=== PATIENT | female | born 1955 | race Caucasian/White ===

== ENCOUNTER → 2018-01-26 08:16 | Outpatient (CLI) | payer OTHER, SELFPAY ==
--- NOTE | 2018-01-26 | DI.MG.S_ITS ---
BILATERAL DIGITAL SCREENING MAMMOGRAM 3D/2D WITH CAD: 01/26/2018 CLINICAL: Routine screening. Family history of breast cancer. Comparison is made to exams dated: 01/24/2017 mammogram, 11/20/2015 mammogram, and 06/25/2014 mammogram - [facility]. There are scattered fibroglandular elements in both breasts. Current study was also evaluated with a Computer Aided Detection (CAD) system. No significant masses, calcifications, or other findings are seen in either breast. There has been no significant interval change. IMPRESSION: NEGATIVE There is no mammographic evidence of malignancy. A 1 year screening mammogram is recommended. This exam was interpreted at Station ID: [id number]. NOTE: For mammograms, a report in lay terms will be sent to the patient. Approximately 15% of breast malignancies will not be visualized mammographically. In the management of a palpable breast mass, a negative mammogram must not discourage biopsy of a clinically suspicious lesion. Electronically Signed By: Surinder bundy/leoncio:01/26/2018 08:49:43 letter sent: Normal Exam ACR BI-RADS Category 1: Negative 3341F
== END ==
PROVIDERS: Family Provider Family Medicine; PCP Family Medicine; Visit Provider Family Medicine
DX: Z12.31 Encounter for screening mammogram for malignant neoplasm of breast (principal); Z80.3 Family history of malignant neoplasm of breast
CPT/HCPCS: 77063; 77067

== ENCOUNTER → 2018-06-29 15:41 | Outpatient (CLI) | payer OTHER, SELFPAY ==
[2018-06-29 17:05] LABS: Bilirubin Urine UA NEGATIVE (NEGATIVE); Color Urine UA YELLOW; Glucose Urine UA NEGATIVE (Normal); Ketones Urine UA NEGATIVE (NEGATIVE); Leukocyte Esterase Urine UA 1+ (NEGATIVE); Nitrite Urine UA NEGATIVE (Negative); Occult Blood Urine UA NEGATIVE (Negative); Protein Urine UA NEGATIVE (Negative); Specific Gravity Urine UA 1.015 (1.000-1.035); Urobilinogen Urine UA 0.2 E.U./dL (0.2)
[2018-06-29 17:07] LABS: Appearance Urine UA Slightly Cloudy
[2018-06-29 17:28] LABS: Bacteria Urine Few (2-10); Culture Indicated Urine Specimen Cultured; RBC Urine 1-5/HPF (0-5/HPF); Squamous Epithelial Cell Urine 1-5 /HPF; WBC Urine 10-30/HPF (0-5/HPF)
== END ==
PROVIDERS: PCP Family Medicine; Visit Provider Specialist
DX: N39.0 Urinary tract infection, site not specified (principal)
CPT/HCPCS: 81001; 87077; 87086; 87186

== ENCOUNTER → 2018-07-24 11:19 | Outpatient (CLI) | payer OTHER, SELFPAY | DX: Z23 Encounter for immunization (principal) | CPT/HCPCS: 90471; 90686 ==

== ENCOUNTER → 2018-11-10 14:23 | Outpatient (CLI) | payer OTHER, SELFPAY ==
[2018-11-10 14:32] LABS: Bacteria Urine None Seen; RBC Urine None Seen (0-5/HPF)
[2018-11-10 14:41] LABS: Appearance Urine UA CLEAR; Bilirubin Urine UA NEGATIVE (NEGATIVE); Color Urine UA YELLOW; Glucose Urine UA NEGATIVE (Negative); Ketones Urine UA NEGATIVE (NEGATIVE); Leukocyte Esterase Urine UA TRACE (NEGATIVE); Nitrite Urine UA NEGATIVE (Negative); Occult Blood Urine UA NEGATIVE (Negative); Protein Urine UA NEGATIVE (Negative); Urobilinogen Urine UA 0.2 E.U./dL (0.2); pH Urine UA 6.5 (4.5-8.0)
[2018-11-10 14:45] LABS: WBC Urine 5-10/HPF (0-5/HPF)
[2018-11-10 14:46] LABS: Culture Indicated Urine Specimen Cultured
== END ==
PROVIDERS: PCP Family Medicine; Visit Provider Specialist
DX: N39.0 Urinary tract infection, site not specified (principal)
CPT/HCPCS: 81001; 87086

== ENCOUNTER → 2018-11-14 14:37 | Outpatient (REF) | payer OTHER, SELFPAY ==
[2018-11-14 15:19] LABS: Prothrombin Time 11.1 SECONDS (10.1-12.7)
== END ==
LOC: LAB 14:37
PROVIDERS: PCP Family Medicine; Visit Provider Family Medicine
DX: R04.0 Epistaxis (principal)
CPT/HCPCS: 85610

== ENCOUNTER → 2019-05-15 14:19 | Outpatient (CLI) | payer OTHER, SELFPAY ==
--- NOTE | 2019-05-15 | DI.MG.S_ITS ---
BILATERAL DIGITAL SCREENING MAMMOGRAM 3D/2D WITH CAD: 05/15/2019 CLINICAL: Routine screening. Family history of breast cancer. Comparison is made to exams dated: 01/26/2018 mammogram, 01/24/2017 mammogram, and 11/20/2015 mammogram - [facility]. There are scattered fibroglandular elements in both breasts. Current study was also evaluated with a Computer Aided Detection (CAD) system. No significant masses, calcifications, or other findings are seen in either breast. There has been no significant interval change. IMPRESSION: NEGATIVE There is no mammographic evidence of malignancy. A 1 year screening mammogram is recommended. This exam was interpreted at Station ID: [id number]. NOTE: For mammograms, a report in lay terms will be sent to the patient. Approximately 15% of breast malignancies will not be visualized mammographically. In the management of a palpable breast mass, a negative mammogram must not discourage biopsy of a clinically suspicious lesion. Electronically Signed By: Frankie naranjo/leoncio:05/15/2019 17:28:05 letter sent: Normal Exam ACR BI-RADS Category 1: Negative 3341F
== END ==
PROVIDERS: PCP Family Medicine; Visit Provider Family Medicine
DX: Z12.31 Encounter for screening mammogram for malignant neoplasm of breast (principal); Z80.3 Family history of malignant neoplasm of breast
CPT/HCPCS: 77063; 77067

== ENCOUNTER → 2019-07-02 10:46 | Outpatient (CLI) | payer OTHER, SELFPAY ==
[2019-07-02 11:06] LABS: Appearance Urine UA CLEAR; Bilirubin Urine UA NEGATIVE (NEGATIVE); Color Urine UA YELLOW; Glucose Urine UA NEGATIVE (Negative); Ketones Urine UA NEGATIVE (NEGATIVE); Leukocyte Esterase Urine UA 3+ (NEGATIVE); Nitrite Urine UA NEGATIVE (Negative); Occult Blood Urine UA TRACE-INTACT (Negative); Protein Urine UA NEGATIVE (Negative); Specific Gravity Urine UA <=1.005 (1.000-1.035); Urobilinogen Urine UA 0.2 E.U./dL (0.2)
[2019-07-02 11:59] LABS: Bacteria Urine Few (2-10); Culture Indicated Urine Specimen Cultured; RBC Urine 0-1/HPF (0-5/HPF); WBC Urine 30-100/HPF (0-5/HPF)
== END ==
PROVIDERS: PCP Family Medicine; Visit Provider Specialist
DX: N39.0 Urinary tract infection, site not specified (principal)
CPT/HCPCS: 81001; 87077; 87086; 87186

== ENCOUNTER → 2019-08-03 13:50 | Outpatient (CLI) | payer OTHER, SELFPAY ==
--- NOTE | 2019-08-03 | DI.RAD.S_ITS ---
PROCEDURE: XR SHOULDER RT MIN 2V INDICATIONS: RIGHT ROTATOR CUFF TENDONITIS TECHNIQUE: 3 views of the shoulder were acquired. COMPARISON: [facility], SHOULDER MINIMUM 2 VIEW LEFT, 02/22/2014, 13:36. [facility], CHEST 2 VIEW, 12/02/2017, 15:00. FINDINGS: Bones: No fractures or dislocations. No suspicious bony lesions. Visualized ribs appear intact. Mild joint narrowing with periarticular osteophyte formation of the acromioclavicular and glenohumeral joints. Soft tissues: No suspicious soft tissue calcifications. IMPRESSION: Mild acromioclavicular and glenohumeral joint degeneration. Dictated by: Jimy ONEIL Interpreted: Shiva Shearer MD on 08/03/2019 at 14:10 Approved by: Shiva Shearer M.D. on 08/03/2019 at 16:52
== END ==
PROVIDERS: PCP Family Medicine; Visit Provider Family Medicine
DX: M75.81 Other shoulder lesions, right shoulder (principal); M19.011 Primary osteoarthritis, right shoulder
CPT/HCPCS: 73030

== ENCOUNTER → 2019-08-08 15:50 | Outpatient (CLI) | payer OTHER, SELFPAY | PROVIDERS: PCP Family Medicine | DX: Z23 Encounter for immunization (principal) | CPT/HCPCS: 90471; 90686 ==

== ENCOUNTER → 2019-09-28 10:42 | Outpatient (CLI) | payer OTHER, SELFPAY ==
--- NOTE | 2019-09-28 10:44 | DI.RAD.S_ITS ---
PROCEDURE: XR CERVICAL SPINE 4V OR 5V INDICATIONS: neck pain and right shoulder TECHNIQUE: 5 views of the cervical spine acquired. COMPARISON: None. FINDINGS: Bones: No fractures or dislocations to the T1 level. Multilevel degenerative endplate sclerosis and spurring. Diffuse facet arthropathy. Moderate narrowing of the C5-C6 disc space and the C6-C7 disc space. Moderate narrowing of the C3-C4 disc space. Mild narrowing of the remaining cervical disc spaces Minimal grade 1 retrolisthesis of C3 on C4. Trace retrolisthesis of C5 on C6. Grade 1 anterolisthesis of C7 on T1. On the left, mild bony foraminal stenosis at C3-C4, and C6-C7 On the right, mild bony foraminal stenosis at C3-C4. Soft tissues: No prevertebral soft tissue swelling. IMPRESSION: Diffuse cervical spondylosis and facet arthropathy Multilevel spondylolisthesis as above. Bilateral bony foraminal stenoses as above. Dictated by: Walker Brody M.D. on 09/28/2019 at 13:24 Approved by: Walker Brody M.D. on 09/28/2019 at 13:28
== END ==
PROVIDERS: PCP Family Medicine; Visit Provider Physical Medicine & Rehabilitation
DX: M54.2 Cervicalgia (principal); M25.511 Pain in right shoulder; M47.812 Spondylosis without myelopathy or radiculopathy, cervical region; M48.02 Spinal stenosis, cervical region; M43.12 Spondylolisthesis, cervical region
CPT/HCPCS: 72050

== ENCOUNTER → 2019-11-05 13:39 | Outpatient (CLI) | payer OTHER, SELFPAY ==
[2019-11-05 15:53] LABS: Appearance Urine UA CLOUDY; Bilirubin Urine UA NEGATIVE (NEGATIVE); Color Urine UA YELLOW; Glucose Urine UA NEGATIVE (Negative); Ketones Urine UA TRACE (NEGATIVE); Leukocyte Esterase Urine UA 2+ (NEGATIVE); Nitrite Urine UA POSITIVE (Negative); Occult Blood Urine UA 2+ (Negative); Protein Urine UA TRACE (Negative); Urobilinogen Urine UA 0.2 E.U./dL (0.2)
[2019-11-05 16:04] LABS: Bacteria Urine Many (>30); Culture Indicated Urine Specimen Cultured; RBC Urine 5-10/HPF (0-5/HPF); Squamous Epithelial Cell Urine 0-1 /HPF (0-5/HPF); Transitional Epi Cells Urine 0-1/HPF (0-5/HPF); WBC Urine >100/HPF (0-5/HPF)
== END ==
PROVIDERS: PCP Family Medicine; Referring Provider Specialist; Visit Provider Specialist
DX: N39.0 Urinary tract infection, site not specified (principal)
CPT/HCPCS: 81001; 87077; 87086; 87186

== ENCOUNTER → 2019-11-22 11:10 | Outpatient (CLI) | payer OTHER, SELFPAY ==
--- NOTE | 2019-11-22 | DI.RAD.S_ITS ---
PROCEDURE: XR CHEST 2V INDICATIONS: cough TECHNIQUE: 2 views of the chest were acquired. COMPARISON: [facility], , CHEST 2 VIEW, 12/02/2017, 15:00. FINDINGS: Surgical changes and devices: None. Lungs and pleura: Lungs are clear. No pleural effusions or pneumothorax. Mediastinum: Mediastinal contours are normal. Heart size is normal. Bones and chest wall: No suspicious bony abnormalities. Soft tissues appear unremarkable. IMPRESSION: Normal for age, source of current cough symptoms is not seen. Dictated by: Luc Franklin M.D. on 11/22/2019 at 11:47 Approved by: Luc Franklin M.D. on 11/22/2019 at 11:47
== END ==
PROVIDERS: PCP Family Medicine; Referring Provider Family Medicine; Visit Provider Family Medicine
DX: R05 Cough (principal)
CPT/HCPCS: 71046

== ENCOUNTER → 2020-07-08 14:24 | Outpatient (CLI) | payer OTHER, SELFPAY ==
--- NOTE | 2020-07-08 | DI.MG.S_ITS ---
BILATERAL DIGITAL SCREENING MAMMOGRAM 3D/2D WITH CAD: 07/08/2020 CLINICAL: Routine screening. Family history of breast cancer. Comparison is made to exams dated: 05/15/2019 mammogram, 01/26/2018 mammogram, and 01/24/2017 mammogram - [facility]. There are scattered fibroglandular elements in both breasts. Current study was also evaluated with a Computer Aided Detection (CAD) system. No significant masses, calcifications, or other findings are seen in either breast. There has been no significant interval change. IMPRESSION: NEGATIVE There is no mammographic evidence of malignancy. A 1 year screening mammogram is recommended. This exam was interpreted at Station ID: [id number]. NOTE: For mammograms, a report in lay terms will be sent to the patient. Approximately 15% of breast malignancies will not be visualized mammographically. In the management of a palpable breast mass, a negative mammogram must not discourage biopsy of a clinically suspicious lesion. Electronically Signed By: Kami ayala/leoncio:07/08/2020 15:38:43 letter sent: Normal Exam ACR BI-RADS Category 1: Negative 3341F
== END ==
PROVIDERS: PCP Family Medicine; Referring Provider Family Medicine; Visit Provider Family Medicine
DX: Z12.31 Encounter for screening mammogram for malignant neoplasm of breast (principal); Z80.3 Family history of malignant neoplasm of breast
CPT/HCPCS: 77063; 77067

== ENCOUNTER → 2020-08-05 15:27 | Outpatient (CLI) | payer OTHER, SELFPAY | PROVIDERS: PCP Family Medicine; Referring Provider Internal Medicine; Visit Provider Internal Medicine | DX: Z23 Encounter for immunization (principal) | CPT/HCPCS: 90471; 90686 ==

== ENCOUNTER → 2020-09-04 11:58 | Outpatient (CLI) | payer OTHER, SELFPAY ==
[2020-09-04] MEDS: COVID-19 VACC(MODERNA-1)/PF 100 MCG/0.5 ML VIAL IM (12:09)
== END ==
PROVIDERS: PCP Family Medicine; Visit Provider Internal Medicine
DX: Z23 Encounter for immunization (principal)
CPT/HCPCS: 0011A; 91301

== ENCOUNTER → 2020-10-03 15:09 | Outpatient (CLI) | payer OTHER, SELFPAY ==
[2020-10-03] MEDS: COVID-19 VACC #2, MRNA(MOD) 100 MCG/0.5 ML VIAL IM (15:34)
== END ==
PROVIDERS: PCP Family Medicine; Visit Provider Internal Medicine
DX: Z23 Encounter for immunization (principal)
CPT/HCPCS: 0012A; 91301

== ENCOUNTER → 2021-01-21 14:16 | Outpatient (CLI) | payer OTHER, SELFPAY | PROVIDERS: PCP Family Medicine; Referring Provider Family Medicine; Visit Provider Family Medicine | DX: M85.851 Other specified disorders of bone density and structure, right thigh (principal); Z78.0 Asymptomatic menopausal state; Z87.891 Personal history of nicotine dependence | CPT/HCPCS: 77080 ==

== ENCOUNTER → 2021-02-20 14:19 | Outpatient (CLI) | payer OTHER, SELFPAY ==
--- NOTE | 2021-02-20 15:23 | PM.TREADMILL ---
Cardiac Stress Test Report Referral & Results Date Patient Seen: 02/20/21 Time Patient Seen: 15:23 Requesting provider: Jossie Florez Indication: Chest pain Rest ECG: Sinus rhythm Procedure Note: Standard Joshua protocol, 7:50 mins, 10.1 METS Good exercise capacity, PRESTON -23% Good exercise hemodynamic response to exercise No chest pain or anginal symptoms 1-1.[address] depression in II, III,aVF, V4-V6 No ectopy Impression: Equivocal stress test Please note: Actual ECG tracings can be found in the PACS system.
--- NOTE | 2021-02-20 18:37 | DI.NM.S_ITS ---
DATE OF SERVICE: 02/20/2021 PROCEDURE PERFORMED: Stress only exercise treadmill myocardial perfusion imaging study with gating to assess ejection fraction and regional wall motion. ORDERING PROVIDER: Dr. Jossie Florez. INDICATIONS: The patient is a 65-year-old female with atypical chest discomfort. CARDIAC STRESS: The patient was able to exercise for 7 minutes 50 seconds on a standard Josuha protocol, suggesting very good exercise capacity with an PRESTON of - 23%. She had a normal heart rate and blood pressure response, achieving a maximum heart rate of 154 BPM (99% of her predicted maximum). She had no chest discomfort or other anginal symptoms. Her resting ECG is normal with normal ST segments and occasional PACs. With exercise, there is considerable motion artifact that makes ST-segment interpretation challenging, but her immediate recovery ECG shows no concerning ST-segment deviation. She had rare PACs with exercise and in recovery, but no complex arrhythmias. At 6 minutes 40 seconds of exercise at a heart rate of 142 BPM, 25.7 millicuries of technetium-99m Myoview was injected and the patient was imaged 15 minutes later using a gated SPECT acquisition protocol. Given the normal stress images, it was felt that resting images were not needed. FINDINGS: 1. Raw data: There is fairly good myocardial tracer uptake with mild breast shadows noted. Lung/heart ratio was normal at 0.29. 2. Quantitated gated SPECT: Post-stress ejection fraction is estimated at 75% without any focal wall motion abnormality and specifically the anterior wall has normal contractility. Post-stress end-diastolic volume is normal at 81 mL. 3. The post-stress supine images show a fairly normal myocardial perfusion pattern with a very subtle defect in the distal anterior wall in a pattern that would be consistent with breast attenuation artifact, supported by its complete resolution on the prone images, revealing a normal, homogeneous perfusion pattern. On the basis of this, it was felt that resting images were not needed. IMPRESSION: 1. Normal myocardial perfusion study. 2. Probable mild breast attenuation artifact, but no evidence for myocardial ischemia or previous myocardial infarction. 3. Normal left ventricular systolic function without any focal wall motion abnormality. 4. Very good exercise capacity without angina or ECG evidence of ischemia. Sue Cleveland - BROWN/jacinto/derrick doc#: [id number]/job#: [id number] dd: 02/20/2021 16:45:00 dt: 02/20/2021 18:21:00 DICTATING MD/COPIES TO: Kenny Ochoa MD; Jossie Florez MD COPIES MNE: VIRIDIANA;
== END ==
PROVIDERS: PCP Family Medicine; Referring Provider Family Medicine; Visit Provider Family Medicine
DX: R07.89 Other chest pain (principal)
CPT/HCPCS: 78451; 93017; A9502

== ENCOUNTER → 2021-06-23 13:39 | Outpatient (CLI) | payer MEDICARE, OTHER, SELFPAY | PROVIDERS: PCP Family Medicine; Referring Provider Internal Medicine; Visit Provider Internal Medicine | DX: Z23 Encounter for immunization (principal) | CPT/HCPCS: 90471; 90686 ==

== ENCOUNTER → 2021-07-23 12:08 | Outpatient (CLI) | payer MEDICARE, OTHER, SELFPAY ==
[2021-07-23 13:06] LABS: Appearance Urine UA SL CLOUDY; Bilirubin Urine UA NEGATIVE (NEGATIVE); Color Urine UA YELLOW; Glucose Urine UA NEGATIVE (Negative); Ketones Urine UA NEGATIVE (NEGATIVE); Leukocyte Esterase Urine UA 3+ (NEGATIVE); Nitrite Urine UA POSITIVE (Negative); Occult Blood Urine UA 1+ (Negative); Protein Urine UA NEGATIVE (Negative); Specific Gravity Urine UA <=1.005 (1.000-1.035); Urobilinogen Urine UA 0.2 E.U./dL (0.2)
[2021-07-23 13:35] LABS: Bacteria Urine Many (>30); Culture Indicated Urine Specimen Cultured; RBC Urine 1-5/HPF (0-5/HPF); Squamous Epithelial Cell Urine 0-1 /HPF (0-5/HPF); WBC Urine >100/HPF (0-5/HPF)
== END ==
PROVIDERS: PCP Family Medicine; Referring Provider Obstetrics & Gynecology; Visit Provider Obstetrics & Gynecology
DX: R30.0 Dysuria (principal)
CPT/HCPCS: 81001; 87077; 87086; 87186

== ENCOUNTER → 2021-08-05 08:01 | Outpatient (CLI) | payer MEDICARE, OTHER, SELFPAY ==
[2021-08-05 10:22] LABS: Appearance Urine UA CLEAR; Bilirubin Urine UA NEGATIVE (NEGATIVE); Color Urine UA YELLOW; Glucose Urine UA NEGATIVE (Negative); Ketones Urine UA NEGATIVE (NEGATIVE); Leukocyte Esterase Urine UA 3+ (NEGATIVE); Nitrite Urine UA NEGATIVE (Negative); Occult Blood Urine UA 1+ (Negative); Protein Urine UA NEGATIVE (Negative); Specific Gravity Urine UA <=1.005 (1.000-1.035); Urobilinogen Urine UA 0.2 E.U./dL (0.2)
[2021-08-05 10:30] LABS: Bacteria Urine Many (>30); Culture Indicated Urine Specimen Cultured; RBC Urine 1-5/HPF (0-5/HPF); WBC Urine 5-10/HPF (0-5/HPF)
== END ==
PROVIDERS: PCP Family Medicine; Referring Provider Obstetrics & Gynecology; Visit Provider Obstetrics & Gynecology
DX: R30.0 Dysuria (principal)
CPT/HCPCS: 81001; 87077; 87086; 87186

== ENCOUNTER → 2021-08-19 09:54 | Outpatient (CLI) | payer MEDICARE, OTHER, SELFPAY ==
[2021-08-19 11:21] LABS: Appearance Urine UA SL CLOUDY; Bilirubin Urine UA NEGATIVE (NEGATIVE); Color Urine UA YELLOW; Glucose Urine UA NEGATIVE (Negative); Ketones Urine UA NEGATIVE (NEGATIVE); Leukocyte Esterase Urine UA 3+ (NEGATIVE); Nitrite Urine UA NEGATIVE (Negative); Occult Blood Urine UA 1+ (Negative); Protein Urine UA NEGATIVE (Negative); Urobilinogen Urine UA 0.2 E.U./dL (0.2)
[2021-08-19 11:23] LABS: pH Urine UA 6.5 (4.5-8.0)
[2021-08-19 12:09] LABS: RBC Urine 1-5/HPF (0-5/HPF)
[2021-08-19 12:10] LABS: Bacteria Urine Many (>30); Culture Indicated Urine Specimen Cultured; Squamous Epithelial Cell Urine None Seen (0-5/HPF); Transitional Epi Cells Urine 1-5/HPF (0-5/HPF); WBC Urine 30-100/HPF (0-5/HPF)
== END ==
PROVIDERS: PCP Family Medicine; Referring Provider Specialist; Visit Provider Specialist
DX: R30.0 Dysuria (principal)
CPT/HCPCS: 81001; 87077; 87086; 87186

== ENCOUNTER → 2021-10-08 08:43 | Outpatient (CLI) | payer MEDICARE, OTHER, SELFPAY ==
--- NOTE | 2021-10-08 | DI.MG.S_ITS ---
BILATERAL DIGITAL SCREENING MAMMOGRAM 3D/2D WITH CAD: 10/08/2021 CLINICAL: Routine screening. Family history of breast cancer. Comparison is made to exams dated: 07/08/2020 mammogram, 05/15/2019 mammogram, and 01/26/2018 mammogram - [facility]. There are scattered fibroglandular elements in both breasts. Current study was also evaluated with a Computer Aided Detection (CAD) system. No significant masses, calcifications, or other findings are seen in either breast. There has been no significant interval change. IMPRESSION: NEGATIVE There is no mammographic evidence of malignancy. A 1 year screening mammogram is recommended. This exam was interpreted at Station ID: [id number]. NOTE: For mammograms, a report in lay terms will be sent to the patient. Approximately 15% of breast malignancies will not be visualized mammographically. In the management of a palpable breast mass, a negative mammogram must not discourage biopsy of a clinically suspicious lesion. Electronically Signed By: Frankie naranjo/leoncio:10/08/2021 11:03:00 letter sent: Normal Exam ACR BI-RADS Category 1: Negative 3341F
== END ==
PROVIDERS: PCP Family Medicine; Referring Provider Family Medicine; Visit Provider Family Medicine
DX: Z12.31 Encounter for screening mammogram for malignant neoplasm of breast (principal); Z80.3 Family history of malignant neoplasm of breast
CPT/HCPCS: 77063; 77067

== ENCOUNTER → 2021-11-28 08:36 | Outpatient (CLI) | payer MEDICARE, OTHER, SELFPAY | PROVIDERS: PCP Family Medicine; Visit Provider Physician Assistant | DX: N39.0 Urinary tract infection, site not specified (principal) | CPT/HCPCS: 87077; 87086; 87147; 87186 ==

== ENCOUNTER → 2021-12-07 12:06 | Outpatient (CLI) | payer MEDICARE, OTHER, SELFPAY ==
--- NOTE | 2021-12-07 12:09 | DI.US.S_ITS ---
PROCEDURE: US RENAL COMPLETE INDICATIONS: CHRONIC UTI TECHNIQUE: Real-time scanning was performed of the kidneys and bladder, with image documentation. COMPARISON: None. FINDINGS: Kidneys: Kidneys are normal in size. Right kidney measures 10.7 cm long; left kidney measures 9.9 cm long. Right renal cortical thickness is 1.9 cm; left renal cortical thickness is 1.5 cm. Renal cortical echotexture is normal. No hydronephrosis or nephrolithiasis. No suspicious solid mass lesions. Bladder: Pre-void bladder volume is 265 mL. Post-void residual is 196 mL. Pre-void images demonstrate no intraluminal masses or stones. On pre-void images, both right and left ureteral jets are noted with color Doppler interrogation. (Of note, ureteral jets may not be detectable in up to 25% of cases due to insufficient differences in specific gravity between ureteral and bladder urine). Miscellaneous: No free pelvic fluid. IMPRESSION: 1. No hydronephrosis. 2. Large postvoid residual urinary bladder volume. Dictated by: Carla Garnett MD, PhD on 12/07/2021 at 13:00 Approved by: Carla Garnett MD, PhD on 12/07/2021 at 13:02
== END ==
PROVIDERS: PCP Family Medicine; Referring Provider Specialist; Visit Provider Specialist
DX: R30.0 Dysuria (principal); R10.9 Unspecified abdominal pain; R33.9 Retention of urine, unspecified; N39.0 Urinary tract infection, site not specified; Z87.440 Personal history of urinary (tract) infections
CPT/HCPCS: 76770

== ENCOUNTER → 2021-12-10 16:30 | Outpatient (CLI) | payer MEDICARE, OTHER, SELFPAY ==
--- NOTE | 2021-12-10 16:32 | DI.RAD.S_ITS ---
PROCEDURE: XR HIP W PEL IF DONE ELENI MIN 4V INDICATIONS: right hip djd TECHNIQUE: AP pelvis with lateral view(s) of the bilateral hip(s). COMPARISON: None. FINDINGS: Bones: No fractures or dislocations. Pelvic ring appears intact. No suspicious bony lesions. Moderate, predominantly medial joint space narrowing of the bilateral hips with mild periarticular osteophytosis. Increased sclerosis of the femoral heads, which may be secondary to superimposed acetabulum. Soft tissues: Large stool burden in the visualized colon. No suspicious soft tissue calcifications. IMPRESSION: Bilateral hip degeneration as detailed above. Dictated by: Clay Barrios M.D. on 12/10/2021 at 16:59 Approved by: Clay Barrios M.D. on 12/10/2021 at 17:00
== END ==
PROVIDERS: PCP Family Medicine; Referring Provider Physical Medicine & Rehabilitation; Visit Provider Physical Medicine & Rehabilitation
DX: M16.0 Bilateral primary osteoarthritis of hip (principal)
CPT/HCPCS: 73522

== ENCOUNTER → 2021-12-13 09:32 | Outpatient (CLI) | payer MEDICARE, OTHER, SELFPAY | PROVIDERS: PCP Family Medicine; Referring Provider Physician Assistant; Visit Provider Physician Assistant | DX: R30.0 Dysuria (principal) | CPT/HCPCS: 87086 ==

== ENCOUNTER → 2022-02-16 14:24 | Outpatient (CLI) | payer MEDICARE, OTHER, SELFPAY ==
--- NOTE | 2022-02-16 14:26 | DI.MRI.S_ITS ---
PROCEDURE: MR HIP RT WO CON INDICATIONS: Right hip DJD acetabular tear TECHNIQUE: Noncontrast coronal T1 spin echo and STIR through the bony pelvis. Coronal and axial T2 fast spin echo with fat saturation, sagittal T1 spin echo, and oblique axial T2 fast spin echo with fat saturation through the hip. COMPARISON: [facility], CR, XR HIP W PEL IF DONE ELENI 3TO4V, 12/10/2021, 16:25. FINDINGS: Image quality: Excellent. Bones and joints: Bone marrow of the pelvic ring and proximal femurs show normal signal throughout. No intraosseous lesions or fractures. No avascular necrosis of the femoral heads. Mild degenerative changes are seen in the pubic symphysis. Disc desiccation, degenerative endplate changes, and facet hypertrophy are seen in the lower lumbar spine. Tendons and ligaments: Mild distal gluteus medius tendinosis and gluteus minimus tendinosis near their distal insertions. No discrete gluteal tendon tear seen. The proximal iliotibial band appears intact. The iliopsoas tendon appears intact, without adjacent bursal fluid collections. The origin of the hamstring tendon is intact at the ischial tuberosity. The direct and indirect heads of the rectus femoris muscle origin appear intact. Labrum and cartilage: There is multifocal cartilage irregularity as well as focal full-thickness cartilage loss at the superior medial aspect of the hip with subchondral edema in the femoral head. Posterior acetabular subchondral cystic changes are also noted and there is marginal osteophyte formation. There is diffuse labral degeneration and nondisplaced degenerative tearing. No significant paralabral cyst is seen. There is normal morphology of the femoral head and the acetabulum. Soft tissues: Mild focal edema is seen within the proximal rectus femoris muscle that may indicate a low-grade strain. Visualized muscles otherwise demonstrate normal bulk and internal signal. Quadratus femoris muscle demonstrates no internal edema to suggest ischiofemoral impingement. The proximal sciatic neurovascular bundle appears intact. Status post hysterectomy. IMPRESSION: 1. Right hip osteoarthrosis including full-thickness cartilage loss at the superomedial femoral head with subchondral edema and subchondral cystic changes. 2. Diffuse labral degeneration and degenerative tearing. 3. Low-grade strain of the rectus femoris muscle. 4. Mild tendinosis of the distal right gluteus medius and minimus tendons. 5. Degenerative changes in the pubic symphysis and included lower lumbar spine. Dictated by: René Alfaro M.D. on 02/17/2022 at 8:20 Approved by: René Alfaro M.D. on 02/17/2022 at 8:32
== END ==
PROVIDERS: PCP Family Medicine; Referring Provider Physical Medicine & Rehabilitation; Visit Provider Physical Medicine & Rehabilitation
DX: S73.191A Other sprain of right hip, initial encounter (principal); S76.811A Strain of other specified muscles, fascia and tendons at thigh level, right thigh, initial encounter; M16.11 Unilateral primary osteoarthritis, right hip; M47.816 Spondylosis without myelopathy or radiculopathy, lumbar region; X58.XXXA Exposure to other specified factors, initial encounter
CPT/HCPCS: 73721

== ENCOUNTER → 2022-04-27 13:23 | Outpatient (CLI) | payer MEDICARE, OTHER, SELFPAY ==
[2022-04-27 14:03] LABS: Appearance Urine UA CLEAR; Bilirubin Urine UA NEGATIVE (NEGATIVE); Color Urine UA YELLOW; Glucose Urine UA TRACE g/dL (Negative); Ketones Urine UA NEGATIVE (NEGATIVE); Leukocyte Esterase Urine UA 3+ (NEGATIVE); Nitrite Urine UA POSITIVE (Negative); Occult Blood Urine UA 2+ (Negative); Protein Urine UA 1+ (Negative); Specific Gravity Urine UA 1.025 (1.000-1.035); Urobilinogen Urine UA 0.2 E.U./dL (0.2); pH Urine UA 5.5 (4.5-8.0)
[2022-04-27 14:05] LABS: Bacteria Urine Many (>30); Culture Indicated Urine Specimen Cultured; RBC Urine 5-10/HPF (0-5/HPF); Squamous Epithelial Cell Urine 0-1 /HPF (0-5/HPF); WBC Urine 30-100/HPF (0-5/HPF)
== END ==
PROVIDERS: PCP Family Medicine; Referring Provider Specialist; Visit Provider Specialist
DX: N39.0 Urinary tract infection, site not specified (principal); R30.0 Dysuria; Z87.440 Personal history of urinary (tract) infections
CPT/HCPCS: 81001; 87077; 87086; 87186

== ENCOUNTER → 2022-07-16 13:54 | Outpatient (CLI) | payer MEDICARE, OTHER, SELFPAY | PROVIDERS: PCP Family Medicine; Referring Provider Internal Medicine; Visit Provider Internal Medicine | DX: Z23 Encounter for immunization (principal) | CPT/HCPCS: 90471; 90686 ==

== ENCOUNTER → 2022-11-29 16:13 | Outpatient (CLI) | payer MEDICARE, OTHER, SELFPAY ==
--- NOTE | 2022-11-29 | DI.MG.S_ITS ---
BILATERAL DIGITAL SCREENING MAMMOGRAM 3D/2D WITH CAD: 11/29/2022 CLINICAL: Routine screening. Family history of breast cancer. Comparison is made to exams dated: 10/08/2021 mammogram, 07/08/2020 mammogram, 05/15/2019 mammogram, and 01/26/2018 mammogram - [facility]. There are scattered areas of fibroglandular density in both breasts (category b / 25%-50% glandular tissue). Current study was also evaluated with a Computer Aided Detection (CAD) system. No significant masses, calcifications, or other findings are seen in either breast. There has been no significant interval change. IMPRESSION: NEGATIVE There is no mammographic evidence of malignancy. A 1 year screening mammogram is recommended. Based on the Tyrer Cuzick model (a risk assessment model) the patient's lifetime risk is 5.6% and her 10 year risk is 2.9%. According to the ACR, ACS, and NCCN guidelines, an annual breast MRI exam along with mammogram is recommended if the patient's lifetime risk is 20% or greater. This exam was interpreted at Station ID: [id number]. NOTE: For mammograms, a report in lay terms will be sent to the patient. Approximately 15% of breast malignancies will not be visualized mammographically. In the management of a palpable breast mass, a negative mammogram must not discourage biopsy of a clinically suspicious lesion. Electronically Signed By: Fransisco thomson/leoncio:11/30/2022 09:21:20 letter sent: Normal Exam ACR BI-RADS Category 1: Negative 3341F
== END ==
PROVIDERS: PCP Family Medicine; Referring Provider Family Medicine; Visit Provider Family Medicine
DX: Z12.31 Encounter for screening mammogram for malignant neoplasm of breast (principal)
CPT/HCPCS: 77063; 77067

== ENCOUNTER → 2023-01-27 12:22 | Outpatient (CLI) | payer MEDICARE, OTHER, SELFPAY ==
--- NOTE | 2023-01-27 | DI.RAD.S_ITS ---
Bone Density Report Name: ROBERTO ALY Age: 67 Sex: Female Ethnicity: White Date of : 1955 Indication: postmenopausal; screening for osteoporosis; Referring Provider: KERRY TESFAYE Study: Bone densitometry was performed. Exam Date: January 27, 2023 Accession number: [id number] Bone Density: Region BMD T-score Z-score Classification AP Spine(L1-L4) 0.908 -1.3 0.7 Osteopenia Femoral Neck (Left) 0.704 -1.3 0.4 Osteopenia Total Hip (Left) 0.808 -1.1 0.3 Osteopenia Femoral Neck (Right) 0.683 -1.5 0.2 Osteopenia Total Hip (Right) 0.785 -1.3 0.1 Osteopenia Total Hip Mean 0.797 -1.2 0.2 Osteopenia World Health Organization criteria for BMD impression classify patients as: Normal (T-score at or above -1.0), Osteopenia (T-score between -1.0 and -2.5), or Osteoporosis (T-score at or below -2.5). 10-year Fracture Risk(1): Major Osteoporotic Fracture 9.6% Hip Fracture 1.2% Reported Risk Factors: [place] (), Neck BMD=0.683, BMI=24.3 (1) FRAX(R) Version 3.08. Fracture probability calculated for an untreated patient. Fracture probability may be lower if the patient has received treatment. Impression: The patient has low bone mass, based on the Right Femoral Neck T-score. The patient has an estimated ten-year risk of hip fracture of 1.2% and an estimated ten-year risk of major fracture of 9.6%, based on the WHO FRAX algorithm. Discussion: BONE DENSITY IS LOW AT ONE OR MORE SKELETAL SITES. This patient's lowest T-score is low at one or more skeletal sites. It meets the World Health Organization's (WHO) criteria for low bone mass (T-score between -1.0 and -2.5). The patient's 10-year risk of fracture as calculated by FRAX is less than the threshold where pharmacological therapy is recommended by the National Osteoporosis Foundation (NOF). However, all treatment decisions require clinical judgment and consideration of individual patient factors, including patient preferences, comorbidities, previous drug use, risk factors not captured in the FRAX model (e.g., frailty, falls, vitamin D deficiency, increased bone turnover, interval significant decline in bone density) and possible under or overestimation of fracture risk by FRAX. The patient should follow a healthful lifestyle (good nutrition with adequate calcium and vitamin D, and appropriate weight-bearing exercise). Follow-Up: Consider repeating this study in 2 to 3 years to reassess this patient's status, or sooner if there is some new clinical indication. Reported by: MARISSA SCHAFFER M.D. on 01/27/2023 12:41:00 PM.
== END ==
PROVIDERS: PCP Family Medicine; Referring Provider Family Medicine; Visit Provider Family Medicine
DX: Z78.0 Asymptomatic menopausal state (principal); M85.80 Other specified disorders of bone density and structure, unspecified site
CPT/HCPCS: 77080

== ENCOUNTER → 2023-08-02 11:38 | Outpatient (CLI) | payer MEDICARE, OTHER, SELFPAY | PROVIDERS: PCP Family Medicine; Referring Provider Family Medicine; Visit Provider Family Medicine | DX: Z23 Encounter for immunization (principal) | CPT/HCPCS: 90471; 90686 ==

== ENCOUNTER → 2023-08-23 16:54 | Outpatient (ROUT) | payer MEDICARE, OTHER, SELFPAY ==
[2023-08-23 17:42] LABS: Influenza A - CEPHEID Flu A NEGATIVE (NEGATIVE); Influenza B - CEPHEID Flu B NEGATIVE (NEGATIVE); Respiratory Syncytial Virus Negative (Negative)
[2023-08-23 18:28] LABS: COVID-19 CEPHEID 4-PLEX PCR Negative (Negative)
== END ==
PROVIDERS: PCP Family Medicine; Visit Provider Family Medicine
DX: R05.1 Acute cough (principal)
CPT/HCPCS: 0241U

== ENCOUNTER → 2023-11-17 15:33 | Outpatient (CLI) | payer MEDICARE, OTHER, SELFPAY ==
--- NOTE | 2023-11-17 15:35 | DI.CT.S_ITS ---
PROCEDURE: CT HIP RIGHT WITHOUT CON INDICATIONS: Unilateral primary osteoarthritis, right hip TECHNIQUE: Noncontrast 3 mm axial sections acquired through the bony pelvis. Additional 3 mm axial sections acquired through the symptomatic hip joint, with coronal and sagittal reformats. COMPARISON: None. FINDINGS: Image quality: Excellent. Bones: Asymmetric moderate to severe right hip joint osteoarthritic changes are seen with near complete loss of joint space, extensive subchondral sclerosis and prominent marginal osteophyte formation. Subcortical cystic changes also noted in weight-bearing portion of right femoral head. Kpzp-ex-mzfvvqsm left hip joint osteoarthritic changes also seen. No avascular necrosis of femoral head. No acute fracture or dislocation. No suspicious bony lesions. Soft tissues: There is no pelvic free fluid or free air. No right hip soft tissue mass or drainable fluid collection. Small right hip joint effusion is seen, no calcified intra-articular loose bodies. No abnormal soft tissue calcifications. No pelvic free fluid or free air. No pelvic or hip lymphadenopathy. IMPRESSION: 1. Asymmetric moderate to severe right hip joint osteoarthritis. Kril-yj-mmakdjcz left hip joint osteoarthritis. No acute fracture or dislocation. No suspicious bony lesions. No evidence of avascular necrosis of femoral head. 2. No gross pelvic or hip soft tissue abnormalities. Dictated by: Pancho Mota M.D. on 11/17/2023 at 16:37 Approved by: Pancho Mota M.D. on 11/17/2023 at 16:40
== END ==
PROVIDERS: PCP Family Medicine; Referring Provider Orthopaedic Surgery; Visit Provider Orthopaedic Surgery
DX: M16.0 Bilateral primary osteoarthritis of hip (principal); S73.191D Other sprain of right hip, subsequent encounter
CPT/HCPCS: 73700

== ENCOUNTER → 2024-01-26 14:44 | Outpatient (CLI) | payer MEDICARE, OTHER, SELFPAY ==
--- NOTE | 2024-01-26 14:46 | DI.MG.S_ITS ---
BILATERAL DIGITAL SCREENING MAMMOGRAM 3D/2D WITH CAD: 01/26/2024 CLINICAL: Routine screening. Family history of breast cancer. Comparison is made to exams dated: 11/29/2022 mammogram, 10/08/2021 mammogram, 07/08/2020 mammogram, and 05/15/2019 mammogram - [facility]. There are scattered areas of fibroglandular density in both breasts (category b / 25%-50% glandular tissue). Current study was also evaluated with a Computer Aided Detection (CAD) system. No significant masses, calcifications, or other findings are seen in either breast. There has been no significant interval change. IMPRESSION: NEGATIVE There is no mammographic evidence of malignancy. A 1 year screening mammogram is recommended. Based on the Tyrer Cuzick model (a risk assessment model) the patient's lifetime risk is 5.3% and her 10 year risk is 2.9%. According to the ACR, ACS, and NCCN guidelines, an annual breast MRI exam along with mammogram is recommended if the patient's lifetime risk is 20% or greater. This exam was interpreted at Station ID: [id number]. NOTE: For mammograms, a report in lay terms will be sent to the patient. Approximately 15% of breast malignancies will not be visualized mammographically. In the management of a palpable breast mass, a negative mammogram must not discourage biopsy of a clinically suspicious lesion. Electronically Signed By: Fransisco thomson/leoncio:01/27/2024 09:50:09 letter sent: Normal Exam ACR BI-RADS Category 1: Negative 3341F
== END ==
PROVIDERS: PCP Family Medicine; Referring Provider Family Medicine; Visit Provider Family Medicine
DX: Z12.31 Encounter for screening mammogram for malignant neoplasm of breast (principal); Z80.3 Family history of malignant neoplasm of breast; R92.323 Mammographic fibroglandular density, bilateral breasts
CPT/HCPCS: 77063; 77067

== ENCOUNTER → 2024-05-11 08:59 | Outpatient (CLI) | payer MEDICARE, OTHER, SELFPAY ==
--- NOTE | 2024-05-11 09:01 | DI.CT.S_ITS ---
PROCEDURE: CT LUNG LOW DOSE SCREENING INDICATIONS: Personal history of nicotine dependence TECHNIQUE: Noncontrast 2.0-2.5 mm thick sections acquired from the pulmonary apices to the posterior costophrenic angles. 7 mm thick axial MIP, and 5 mm coronal and sagittal reformats were then acquired. For radiation dose reduction, the following was used: automated exposure control, adjustment of mA and/or kV according to patient size. COMPARISON: [facility], CT, CT LOW DOSE LUNG CA SCREENING, 12/23/2022, 16:00. FINDINGS: Image quality: Diagnostic. Lower Neck: No enlarged lymph nodes. Thyroid: No thyroid nodules which require sonographic follow up, per consensus guidelines. Axillae: No enlarged lymph nodes. Chest Wall: Unremarkable. Bones: Spine degenerative disc disease and facet arthropathy. Lungs and Pleura: Stable a pickle pleural-parenchymal scarring. No pneumothorax or pleural effusions. No consolidation or suspicious nodules. Heart: Heart size is normal. No pericardial effusion. Thoracic Vessels: The aorta and pulmonary arteries demonstrate normal size. Mediastinum and Rosi: No enlarged lymph nodes. Esophagus: No wall thickening. No hiatal hernia. Upper Abdomen: Visualized upper abdomen solid organs and bowel loops appear normal. IMPRESSION: No suspicious pulmonary nodules. LUNG-RADS 1; continued annual screening, if eligible. Clinically Significant Non-pulmonary Findings: None. Dictated by: Carla Garnett MD, PhD on 05/13/2024 at 12:50 Approved by: Carla Garnett MD, PhD on 05/13/2024 at 12:53
== END ==
PROVIDERS: PCP Family Medicine; Referring Provider Family Medicine; Visit Provider Family Medicine
DX: Z87.891 Personal history of nicotine dependence (principal); J98.4 Other disorders of lung; M47.819 Spondylosis without myelopathy or radiculopathy, site unspecified
CPT/HCPCS: 71271

== ENCOUNTER → 2024-11-20 14:07 | Outpatient (CLI) | payer MEDICARE, OTHER, SELFPAY ==
[2024-11-20 14:37] LABS: Appearance Urine UA CLEAR; Bilirubin Urine UA NEGATIVE (NEGATIVE); Color Urine UA YELLOW; Glucose Urine UA NEGATIVE (Negative); Ketones Urine UA NEGATIVE (NEGATIVE); Leukocyte Esterase Urine UA TRACE (NEGATIVE); Nitrite Urine UA NEGATIVE (Negative); Occult Blood Urine UA NEGATIVE (Negative); Protein Urine UA NEGATIVE (Negative); Urobilinogen Urine UA 0.2 E.U./dL (0.2)
[2024-11-20 14:39] LABS: pH Urine UA 5.5 (4.5-8.0)
[2024-11-20 14:43] LABS: Bacteria Urine Occasional (0-1); RBC Urine None Seen (0-5/HPF); Squamous Epithelial Cell Urine 1-5 /HPF (0-5/HPF); Urine Volume 10mL (spun); WBC Urine 10-30/HPF (0-5/HPF)
[2024-11-20 14:44] LABS: Culture Indicated Urine Cult Not Indicated
== END ==
LOC: LAB 14:10
PROVIDERS: PCP Family Medicine; Referring Provider Obstetrics & Gynecology Gynecology; Visit Provider Obstetrics & Gynecology Gynecology
DX: R30.0 Dysuria (principal); R82.90 Unspecified abnormal findings in urine
CPT/HCPCS: 81001; 87077; 87086; 87186

== ENCOUNTER 2025-01-01 07:23 | Day surgery (SDC) | payer MEDICARE, OTHER, SELFPAY ==
[2025-01-01] VITALS (8 sets, daily range): BP systolic 85–133; BP diastolic 45–81; PULSE 48–78; RESP 14–29; TEMP 36.3–36.7; O2SAT 92–97
[2025-01-01] MEDS: LACTATED RINGERS 1,000 ML 42 ML IV (08:36)
--- NOTE | 2025-01-01 09:12 | PM.HP.IH.1 ---
History of Present Illness History of Present Illness Chief complaint: Screening Colonoscopy Narrative: 69-year-old female with a remote history of colonic polyps. Her last scope was several years ago. Benign polyps were identified. She presents for screening colonoscopy. [facility] Medical History Cervical spondylosis with radiculopathy Degenerative joint disease of right hip Depression Facet arthropathy, cervical Herniated disc History of UTI Labral tear of right hip joint Lumbar disc disease Lumbar post-laminectomy syndrome Neurogenic bladder Postmenopausal atrophic vaginitis Prolapse of female pelvic organs Sciatica Shoulder impingement syndrome Surgical History H/O section History of bladder suspension procedure History of discectomy History of discectomy Family History Father Kidney failure Mother Lung cancer Social History Smoking Status: Former smoker alcohol intake: current Meds Home Medications and Allergies Home Medications Medication Instructions Recorded Confirmed Type B-complex with vitamin C 1 cap PO DAILY 06/24/20 02/08/22 History calcium 600 mg (as cap PO 06/24/20 02/08/22 History carbonate)-vitamin D3 12.5 mcg (500 unit) capsule (Calcium with Vit D3) estradiol 0.01% (0.1 mg/gram) 1 gram vaginal QWEEK #42.5 grams 06/24/20 02/08/22 Rx vaginal cream (Estrace) flaxseed oil 5 ml miscellaneous BID 06/24/20 02/08/22 History lactobacillus combination no.8 3 3,000 mmu cells PO DAILY 06/24/20 02/08/22 History billion cell capsule (Adult Probiotic) magnesium 30 mg tablet 30 mg PO DAILY 06/24/20 02/08/22 History bupropion HCl 150 mg 24 hr tablet, 150 mg PO DAILY 12/15/21 01/01/25 History extended release naproxen sodium 220 mg tablet 220 mg PO BID PRN Pain (Scale 02/08/22 01/01/25 History (Aleve) Score 4-6) methenamine hippurate 1 gram tablet 1 g PO DAILY 01/01/25 01/01/25 History Allergies Allergy/AdvReac Type Severity Reaction Status Date / Time No Known Drug Allergies Allergy Verified 01/01/25 08:27 Review of Systems Review of Systems Narrative: Comprehensive review of systems negative to direct questioning. Exam Vital Signs (past 8 hours): - 01/01/25 08:37 Temperature 97.4 F L Pulse Rate 78 Respiratory Rate 16 Blood Pressure 129/81 Pulse Oximetry 97 Oxygen Delivery Method Room Air Oxygen Delivery Method Room Air Narrative Exam Narrative: In general this is a well-nourished well-developed female alert and oriented x3 in no distress. Head is normocephalic and atraumatic. Neck is supple. Back is without CVA or spinous process tenderness. Lungs are clear. Chest is symmetric nontender with normal inspiratory and expiratory excursion. Heart has a regular rate and rhythm with no murmur or gallop. Abdomen is soft nontender with normal bowel sounds. Extremities manifests full range of motion. Neurological exam is nonfocal. Assessment & Plan Assessment and plan (1) History of colon polyps: Status: Acute Plan I have recommended colonoscopy for screening. Alternatives, risks and benefits were discussed in detail. Questions were answered. Patient voices understanding and desires to proceed as I have outlined. Time-Based Coding :: [TOTAL MINUTES] spent with patient and on the chart (including review of chart, obtaining history, exam, reviewing outside data, placing orders, documenting exam and treatment plan, and counseling patient) on [DATE]. PROFEE Liver Trimmer Document charge(s): Yes
[2025-01-01] MEDS: GLUCAGON,HUMAN RECOMBINANT 1 MG/ML VIAL IV (10:25)
--- NOTE | 2025-01-01 10:55 | PM.OP.COLON ---
Operative Date/Time/Diagnoses Date of procedure: 01/01/25 Time of procedure: 10:40 Pre-op diagnosis: History of diverticulosis Post-op diagnosis: same Procedure & Clinicians Study performed: Colonoscopy Same procedure as scheduled: Yes Indications: History of diverticulosis. Colonoscopy screen. Surgeon: Kenny Jones Procedure Notes SCOAP/Timeout: 1026 Procedure in detail: After obtaining informed consent properly identifying the patient the patient was transferred to the endo suite and was placed on the table in the left lateral decubitus position. IV sedation was administered and when an adequate level of sedation was achieved the procedure commenced. Time-out protocol was observed. A 2 m flexible fiberoptic colonoscope was passed transanally into the rectum and under direct endoscopic observation was passed around the cecum. Prep was adequate. Cecum was identified at the confluence of the tenia coli and appendiceal orifice. Exam was performed retrograde. Cecum and ascending colon were without evidence of mucosal abnormality. There were no ulcerations polyps or arteriovenous malformations. The hepatic flexure and transverse colon as well as the splenic flexure was similarly normal in appearance. Descending colon similarly was without evidence of mucosal abnormality. Sigmoid colon was tortuous, redundant and heavily muscled. Minimal diverticulosis was in evidence. The rectum was normal as the scope was withdrawn. The procedure was terminated. Patient tolerated the procedure well and was transported to the recovery room extubated and awake. Scope withdrawal time: 1053 Post-procedure Plan for aftercare: Discharge to home. Repeat colonoscopy in 5 years.
[2025-01-01] MEDS: ONDANSETRON 4 MG/2 ML INJ IV (11:15)
[2025-01-01] MEDS: KETOROLAC 30 MG/ML VIAL 15 MG IV (11:19)
[2025-01-01] MEDS: ACETAMINOPHEN IV 1,000 MG/100 ML VIAL 400 MG IV (11:31)
--- NOTE | 2025-01-01 12:48 | SUR.PHASEII ---
patient alert, awake and oriented. she reports that her pain is not getting worse and that it is a 4 on a pain scale of 0 to 10 with 0 being no pain and 10 being the worse. she states that she is passing some gas. bowel sounds present in all 4 quadrants. abdomen soft. patient reports that she feels comfortable to be discharged home. She verbalizes an understanding that if her pain gets worse that she needs to go to the emergency room. patient able to get dressed by herself.
== END 2025-01-01 12:48 | disposition home or self-care (01) ==
PROVIDERS: PCP Family Medicine; Referring Provider Surgery; Visit Provider Surgery
PROC: 0DJD8ZZ Inspection of Lower Intestinal Tract, Via Natural or Artificial Opening Endoscopic (ICD-10-PCS; CPT 45378; principal; 2025-01-01 09:15)
DX: Z12.11 Encounter for screening for malignant neoplasm of colon (principal); Z86.0100 Personal history of colon polyps, unspecified; K57.30 Diverticulosis of large intestine without perforation or abscess without bleeding
CPT/HCPCS: G0105; J0131; J1610; J1885; J2405; J2704

== ENCOUNTER → 2025-01-29 14:55 | Outpatient (CLI) | payer MEDICARE, OTHER, SELFPAY ==
--- NOTE | 2025-01-29 14:56 | DI.MG.S_ITS ---
MM screening mammo BI: 01/29/2025. BI-RADS: 1 CLINICAL: 69-year old female for bilateral screening mammogram. Tyrer-Cuzick lifetime risk of 2.8%. No personal or first-degree family history of breast cancer. PRIOR EXAMS 01/26/2024, 11/29/2022, 10/08/2021, 07/08/2020, 05/15/2019, 01/26/2018, 01/24/2017, 11/20/2015. MAMMOGRAPHY TECHNIQUE: 2D and 3D (tomosynthesis) digital mammographic views obtained, with additional images as needed for full coverage. Current study was also evaluated with a Computer Aided Detection (CAD) system. DENSITY B. There are scattered areas of fibroglandular density. MAMMOGRAPHY FINDINGS Bilateral: No suspicious mass, asymmetry, microcalcification, or other abnormality seen. IMPRESSION: * No evidence of malignancy. RECOMMENDATIONS Bilateral * Annual screening mammography. OVERALL ASSESSMENT CATEGORY BI-RADS-1: Negative. The [employer] recommends annual screening mammography beginning at age 40 for women with average risk of breast cancer. ELECTRONICALLY SIGNED: Frankie Muller M.D. on 01/30/2025 at 10:51:13 AM PT Interpreting Station ID: [id number]
== END ==
PROVIDERS: PCP Family Medicine; Referring Provider Family Medicine; Visit Provider Family Medicine
DX: Z12.31 Encounter for screening mammogram for malignant neoplasm of breast (principal)
CPT/HCPCS: 77063; 77067

== ENCOUNTER → 2025-07-04 14:42 | Outpatient (CLI) | payer MEDICARE, OTHER, SELFPAY ==
--- NOTE | 2025-07-04 14:44 | DI.RAD.S_ITS ---
PROCEDURE: XR DEXA AXIAL SKELETON INDICATIONS: history of tobacco use/ osteoporosis screening COMPARISON: [facility], , XR DEXA AXIAL SKELETON, 01/27/2023, 12:30. FINDINGS: Lumbar Spine: Bone mineral density 0.92 g/cm2, T score -1.2, previously -1.3. Left Femoral Neck: Bone mineral density is 0.701 g/cm2, T score -1.3. Left Hip: Bone mineral density 0.785 g/cm2, T score -1.3, previously -1.1. Fracture Risk Calculation (when applicable): 10-year fracture risk of a major osteoporotic fracture 9.4 percent and of a hip fracture 1.2 percent. (T score greater or equal to -1.0 to: NORMAL) (T score from -1.1 to -2.4: OSTEOPENIA) (T score less than or equal to -2.5: OSTEOPOROSIS) IMPRESSION: Osteopenia Follow-up guidelines as follows: Osteoporosis: Consider a repeat DEXA and Vertebral Fracture Assessment (VFA) exam in 2 years or sooner if medically necessary, to reassess this patient's status. Osteopenia: Consider a repeat DEXA in 2-3 years to reassess this patient's status, or if there is a new clinical indication. Normal: Consider a repeat DEXA in 5 years or sooner, or if there is a new clinical indication. All treatment decisions require clinical judgment and consideration of individual patient factors, including patient preferences, comorbidities, previous drug use, risk factors not captured in the FRAX model (e.g., frailty, falls, vitamin D deficiency, increased bone turnover, interval significant decline in bone density ) and possible under- or over-estimation of fracture risk by FRAX. In addition, the NOF Guide recommends that FDA-approved medical therapies be considered in postmenopausal women and men age >= 50 years with a: * Hip or vertebral (clinical or morphometric) fracture * T-score of <=-2.5 at the spine or hip * Ten-year fracture probability by FRAX of >= 3% for hip fracture or >=20% for major osteoporotic fracture. Approved by: Kenneth Tristan M.D. on 07/04/2025 at 18:29
--- NOTE | 2025-07-04 14:44 | DI.CT.S_ITS ---
PROCEDURE: CT LUNG LOW DOSE SCREENING INDICATIONS: history of tobacco use/ osteoporosis screening TECHNIQUE: Noncontrast 2.0-2.5 mm thick sections acquired from the pulmonary apices to the posterior costophrenic angles. 7 mm thick axial MIP, and 5 mm coronal and sagittal reformats were then acquired. For radiation dose reduction, the following was used: automated exposure control, adjustment of mA and/or kV according to patient size. COMPARISON: [facility], CT, CT LUNG LOW DOSE SCREENING, 05/11/2024, 9:10. FINDINGS: Image quality: Diagnostic. Lower Neck: No enlarged lymph nodes. Thyroid: No thyroid nodules which require sonographic follow up, per consensus guidelines. Axillae: No enlarged lymph nodes. Chest Wall: Unremarkable. Bones: Unremarkable. Lungs and Pleura: No pneumothorax or pleural effusions. No consolidation or suspicious nodules. Heart: Heart size is normal. No pericardial effusion. Thoracic Vessels: The aorta and pulmonary arteries demonstrate normal size. Mediastinum and Rosi: No enlarged lymph nodes. Esophagus: No wall thickening. No hiatal hernia. Upper Abdomen: Visualized upper abdomen solid organs and bowel loops appear normal. IMPRESSION: No suspicious pulmonary nodules. LUNG-RADS 1; continued annual screening, if eligible. Clinically Significant Non-pulmonary Findings: None. Dictated by: Noel Tavarez M.D. on 07/04/2025 at 19:05 Approved by: Noel Tavarez M.D. on 07/04/2025 at 19:09
== END ==
LOC: RAD 14:43
PROVIDERS: PCP Family Medicine; Referring Provider Family Medicine; Visit Provider Family Medicine
DX: Z12.2 Encounter for screening for malignant neoplasm of respiratory organs (principal); Z87.891 Personal history of nicotine dependence; M85.89 Other specified disorders of bone density and structure, multiple sites; Z78.0 Asymptomatic menopausal state
CPT/HCPCS: 71271; 77080

== ENCOUNTER → 2025-07-31 09:56 | Outpatient (CLI) | payer MEDICARE, OTHER, SELFPAY ==
[2025-07-31 11:21] LABS: Appearance Urine UA SL CLOUDY; Bilirubin Urine UA NEGATIVE (NEGATIVE); Color Urine UA YELLOW; Glucose Urine UA NEGATIVE (Negative); Ketones Urine UA NEGATIVE (NEGATIVE); Leukocyte Esterase Urine UA 3+ (NEGATIVE); Nitrite Urine UA NEGATIVE (Negative); Occult Blood Urine UA TRACE-INTACT (Negative); Protein Urine UA NEGATIVE (Negative); Specific Gravity Urine UA <=1.005 (1.000-1.035); Urobilinogen Urine UA 0.2 E.U./dL (0.2)
[2025-07-31 11:22] LABS: pH Urine UA 5.5 (4.5-8.0)
== END ==
PROVIDERS: PCP Family Medicine; Referring Provider Family Medicine; Visit Provider Obstetrics & Gynecology Gynecology
DX: R39.15 Urgency of urination (principal)
CPT/HCPCS: 81001; 87077; 87086; 87186

== ENCOUNTER → 2025-08-05 15:27 | Outpatient (CLI) | payer MEDICARE, OTHER, SELFPAY ==
--- NOTE | 2025-08-05 15:30 | DI.RAD.S_ITS ---
PROCEDURE: XR CERVICAL SPINE 2V OR 3V INDICATIONS: NECK PAIN TECHNIQUE: 3 view(s) of the cervical spine were acquired. COMPARISON: Located [facility], CR, XR CERVICAL SPINE 4V OR 5V, 09/28/2019, 10:53. FINDINGS: Bones: No fractures or dislocations to the T1 level. The lateral masses of C1 appear intact on the odontoid view. No suspicious bony lesions. Grade 1 C4 on C5 and C7 on T1 anterolisthesis. Grade 1 C5 on C6 retrolisthesis. No scoliosis. Multilevel facet arthropathy noted. Marked C5-6 and C6-7 disc narrowing. Soft tissues: No prevertebral soft tissue swelling. IMPRESSION: No displaced fracture or traumatic subluxation. Dictated by: Juliane Phillips M.D. on 08/06/2025 at 13:16 Approved by: Juliane Phillips M.D. on 08/06/2025 at 13:17
== END ==
PROVIDERS: PCP Family Medicine; Referring Provider Family Medicine; Visit Provider Family Medicine
DX: M47.812 Spondylosis without myelopathy or radiculopathy, cervical region (principal); M43.12 Spondylolisthesis, cervical region; M54.2 Cervicalgia
CPT/HCPCS: 72040